=== PATIENT | female | born 2000 | race Caucasian/White ===

== ENCOUNTER 2019-12-25 20:05 | Emergency (ER) | payer SELFPAY ==
[~2019-12-25] VITALS: Ht 160 cm; Wt 50.3 kg
[2019-12-25] MEDS ORDERED: ACETAMINOPHEN 500 MG TABLET PO ONE (21:00)
[2019-12-25] MEDS ORDERED: DEXAMETHASONE 4 MG TABLET PO ONE (21:00)
[2019-12-25] MEDS ORDERED: DEXAMETHASONE 4 MG TABLET ONE (22:17)
[2019-12-25] MEDS ORDERED: ACETAMINOPHEN 500 MG TABLET ONE (22:17)
[2019-12-25 22:39] VITALS: BP 112/69
== END 2019-12-25 23:12 | disposition home or self-care (01) ==
LOC: ED 21:05
DX: J10.1 Influenza due to other identified influenza virus with other respiratory manifestations (principal); R51 Headache; H92.03 Otalgia, bilateral
CPT/HCPCS: 71046; 99283